=== PATIENT | male | born 1950 | race Caucasian/White ===

== ENCOUNTER 2017-12-13 18:35 | Emergency (ER) | payer OTHER ==
[2017-12-13 18:43] VITALS: BP 153/88
--- NOTE | 2017-12-13 19:01 | CPEKG ---
Test Reason : OPEN Blood Pressure : / mmHG Vent. Rate : 085 BPM Atrial Rate : 086 BPM P-R Int : 190 ms QRS Dur : 089 ms QT Int : 364 ms P-R-T Axes : 057 060 044 degrees QTc Int : 433 ms Sinus rhythm Confirmed by Tylor Eisenberg ([id number]) on 12/13/2017 7:01:02 PM Referred By: Confirmed By:Tylor Eisenberg
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
== END 2017-12-13 19:19 | disposition home or self-care (01) ==
DX: R55 Syncope and collapse (principal)